=== PATIENT | female | born 1950 | race Caucasian/White ===

== ENCOUNTER 2018-01-05 04:07 | Emergency (ER) | payer OTHER, MEDICARE ==
[2018-01-05] MEDS ORDERED: methylPREDNISolone NA SUCC 125 MG/2 ML VIAL IVPB ONE (04:11)
[2018-01-05] MEDS ORDERED: FAMOTIDINE 20 MG/50 ML IVPB 20 MG/50 ML MG IVPB ONE (04:11)
--- NOTE | 2018-01-05 04:12 | PDOC ---
History of Present Illness - General Chief Complaint: Allergic Reaction Stated Complaint: ALLERGIC REACTION Time Seen by Provider: 01/05/18 04:10 - History of Present Illness Initial Comments: This 67-year-old woman with a history hyperlipidemia, depression/anxiety, chronic cough presents with apparent ALLERGIC reaction. Patient was awakened about an hour prior to presentation with generalized itching. At that time, she noted that her lips and tongue were swollen. Patient took an "old" Benadryl tablets that she had; she states she does not know the expiration date of the medication. She then drove herself to the hospital. Patient is mainly bothered by pruritus; she denies difficulty swallowing or breathing. She has not had any shortness of breath/wheezing/stridor. She denies any new food/ medication/supplements exposure. Although she had a glass wine prior to retiring at 11:30 PM, this was wine that she has had previously. She has not had any new soaps/detergent/creams applied to her body. Medications as noted below. ALLERGIES: Patient is unsure which antibiotic she is ALLERGIC to; she thinks it probably is amoxicillin PMH as above. 01/05/18 06:10 Past History - Past Medical History Allergies/Adverse Reactions: Allergies Allergy/AdvReac Type Severity Reaction Status Date / Time amoxicillin [Amoxicillin] Allergy Severe N&V Verified 01/05/18 04:08 Home Medications: Ambulatory Orders Bupropion HCl [Wellbutrin Sr] 150 mg PO DAILY 04/20/13 Citalopram Hydrobromide [Celexa -] 20 mg PO DAILY 04/20/13 Simvastatin [Zocor -] 5 mg PO ASDIR 04/20/13 predniSONE [Deltasone -] 5 mg PO DAILY 04/20/13 EPINEPHrine (EPI-PEN 0.3MG) [Epipen 0.3MG -] 0.3 mg IM ASDIR #2 pens 01/05/18 Anemia: No Asthma: Yes (HASN'T BEEN USING MEDS FOR 20 YEARS,TAKES PREDNISONE FOR COUGH) Cancer: No Cardiac Disorders: No CVA: No COPD: No CHF: No Dementia: No Diabetes: No GI Disorders: Yes (IBS 1975) Disorders: No HTN: No Hypercholesterolemia: Yes Liver Disease: No Psychiatric Problems: Yes (DEPRESSION) Seizures: No Thyroid Disease: No - Surgical History Abdominal Surgery: No Appendectomy: No Cardiac Surgery: No Cholecystectomy: No Lung Surgery: No Neurologic Surgery: No Orthopedic Surgery: Yes (RIGHT HAND SX 2007) - Immunization History Immunization Up to Date: No - Suicide/Smoking/Psychosocial Hx Smoking Status: No Smoking History: Never smoked Have you smoked in the past 12 months: No Number of Cigarettes Smoked Daily: 0 Hx Alcohol Use: Yes (SOCIALLY) Drug/Substance Use Hx: No Substance Use Type: Alcohol Hx Substance Use Treatment: No Review of Systems - Review of Systems Able to Perform ROS?: Yes Comments:: 12 point review of systems is negative except for what is noted in the history of present illness *Physical Exam - Physical Exam Comments: GENERAL: Adult female, alert and oriented 3, anxious but in no acute distress HEAD: Normal with no signs of trauma. EYES: PERRLA, EOMI, sclera anicteric, conjunctiva clear. ENT: Ears normal, nares patent, oropharynx clear without exudates. Moist mucous membranes. Mild upper and lower lip edema; moderate tongue edema; uvula and pharynx are nonedematous and otherwise normal NECK: Normal range of motion, supple without lymphadenopathy, JVD, or masses. No stridor LUNGS: Breath sounds equal, clear to auscultation bilaterally. No wheezes, and no crackles. HEART:Regular rate and rhythm, normal S1 and S2 without murmur, rub or gallop. ABDOMEN:.normal bowel sounds No guarding,tenderness or rebound.No masses No distention. EXTREMITIES: Normal range of motion, no edema. No clubbing or cyanosis. No erythema, or tenderness. NEUROLOGICAL: Cranial nerves II through XII grossly intact. Normal speech. No focal neurological deficits. MUSCULOSKELETAL: Back non-tender to palpation, no CVA tenderness SKIN: Generalized erythema with scattered maculo papular rash consistent with urticaria of head, neck, anterior and posterior chest and extremities Medical Decision Making - Medical Decision Making This 67-year-old woman with a history of hyperlipidemia/chronic cough/ depression presents with generalized ALLERGIC reaction, including lip and tongue edema. The allergen that triggered this reaction is unclear with patient denying any new food or medication exposure. The antidepressant medication and statin that the patient is taking have been taking chronically . Patient is complaining of generalized itching; she has no difficulty swallowing or breathing and airway is clear on auscultation. Exam as noted. Because of the lip and tongue edema, patient will have IV Solu-Medrol/Benadryl/ Pepcid and be observed 01/05/18 07:06 Patient has markedly decreased lip and tongue edema; no stridor or wheezing heard on auscultatory exam. Erythema and urticaria also are greatly improved. Patient states that she no longer has pruritus. Patient will be discharged with a ride home (likely taxi) with follow-up as already scheduled with her doctor tomorrow She will continue Benadryl as needed for itching; she has been instructed to take 10 mg of prednisone dinner tonight and with breakfast tomorrow morning prior to seeing her PMD; further dosing of prednisone as per her PMD. Prescription for EpiPen will be transmitted to her pharmacy. Case discussed with incoming physician at end of shift *DC/Admit/Observation/Transfer Diagnosis at time of Disposition: Allergic reaction Qualifiers: Encounter type: initial encounter Qualified Code(s): T78.40XA - Allergy, unspecified, initial encounter - Discharge Dispostion Condition at time of disposition: Stable - Prescriptions Prescriptions: EPINEPHrine (EPI-PEN 0.3MG) [Epipen 0.3MG -] 0.3 mg IM ASDIR #2 pens - Referrals - Patient Instructions Printed Discharge Instructions: DI for General Allergic Reactions Additional Instructions: Benadryl 25 mg, one tablet late this afternoon and then as needed for itching Prednisone 10 mg tonight with dinner and then with breakfast tomorrow morning Hold simvastatin today; continue anti-depressants as discussed Follow-up with your doctor as already scheduled tomorrow Return to ER if you have any difficulty swallowing/breathing or increase in lip/ tongue swelling - Post Discharge Activity
[2018-01-05 04:15] VITALS: BP 146/87; TEMP 98.6; BMI 21.5
[2018-01-05] MEDS ORDERED: methylPREDNISolone NA SUCC 125 MG/2 ML VIAL IVPUSH ONE (04:25)
[2018-01-05 05:25] VITALS: PULSE 73
[2018-01-05] MEDS ORDERED: diphenhydrAMINE HCL 25 MG CAPSULE (FP) PO ONE (06:40)
== END 2018-01-05 07:55 | disposition home or self-care (01) ==
LOC: FER 04:07
PROC: 3E033GC Introduction of Other Therapeutic Substance into Peripheral Vein, Percutaneous Approach (ICD-10-PCS; principal; 2018-01-05)
DX: T78.40XA Allergy, unspecified, initial encounter (principal); F32.9 Major depressive disorder, single episode, unspecified; E78.00 Pure hypercholesterolemia, unspecified; J45.909 Unspecified asthma, uncomplicated; K58.9 Irritable bowel syndrome, unspecified
CPT/HCPCS: 99282-25

== ENCOUNTER 2020-07-27 10:18 | Emergency (ER) | payer OTHER, MEDICARE | END 2020-07-27 12:02 | disposition home or self-care (01) | LOC: JVIRT 10:18 | DX: U07.1 COVID-19 (principal) | CPT/HCPCS: C9803; Q3014-GT; U0003 ==

== ENCOUNTER 2021-01-13 10:32 | Emergency (ER) | payer OTHER, MEDICARE ==
[2021-01-13 10:51] VITALS: BMI 21.0
[2021-01-13] MEDS ORDERED: ONDANSETRON 4 MG/2 ML VIAL IVPUSH ONE (11:17)
[2021-01-13] MEDS ORDERED: KETOROLAC TROMETHAMINE 15 MG/ML VIAL IVPUSH ONE (11:17)
[2021-01-13] MEDS ORDERED: KETOROLAC TROMETHAMINE 15 MG/ML VIAL ONE (11:24)
[2021-01-13] MEDS ORDERED: ONDANSETRON 4 MG/2 ML VIAL ONE (11:24)
[2021-01-13 11:28] LABS: MONO % 5.6 % (3.8-10.2); RBC 5.21 M/mm3 (3.60-5.2)
[2021-01-13 11:30] LABS: BASO % 1.1 % (0-2.0); EOS % 0.7 % (0-4.5); HEMATOCRIT 43.8 % (32.4-45.2); HEMOGLOBIN 15.1 GM/dl (10.7-15.3); LYMPH % 10.4 % (8-40); MCHC 34.4 g/dl (32.0-36.0); MEAN CELL VOLUME 84.1 fl (80-96); MEAN PLT VOLUME 8.1 fl (7.5-11.1); NEUT % 82.2 % (42.8-82.8); PLATELET COUNT 242 10^3/uL (134-434); WHITE BLOOD COUNT 10.2 K/mm3 (4.0-10.8)
[2021-01-13 11:51] LABS: ALBUMIN 4.6 g/dl (3.4-5.0); BILIRUBIN,TOTAL 0.8 mg/dl (0.2-1); CALCIUM 9.7 mg/dl (8.5-10); CREATININE 0.9 mg/dl (0.55-1.3); TOT PROT 8.4 g/dl (6.4-8.2)
[2021-01-13 12:04] VITALS: BP 187/91; PULSE 65; TEMP 97
[2021-01-13 12:34] LABS: EPITHELIAL CELLS FEW /hpf
== END 2021-01-13 13:29 | disposition home or self-care (01) ==
LOC: FER 10:32
PROC: 3E0333Z Introduction of Anti-inflammatory into Peripheral Vein, Percutaneous Approach (ICD-10-PCS; principal; 2021-01-13)
PROC: 3E033GC Introduction of Other Therapeutic Substance into Peripheral Vein, Percutaneous Approach (ICD-10-PCS; 2021-01-13)
DX: N20.0 Calculus of kidney (principal)
CPT/HCPCS: 36415; 74176-TC; 80053; 81003; 81015; 85025; 87086; 99284-25

== ENCOUNTER 2021-03-05 17:06 | Emergency (ER) | payer OTHER, MEDICARE ==
[2021-03-05 17:14] VITALS: BP 148/79; PULSE 95; TEMP 98.1; BMI 21.0
[2021-03-05 17:57] LABS: BASO % 0.6 % (0-2.0); EOS % 2.6 % (0-4.5); HEMATOCRIT 38.5 % (32.4-45.2); HEMOGLOBIN 12.8 GM/dl (10.7-15.3); LYMPH % 12.8 % (8-40); MCH 28.8 pg (25.7-33.7); MCHC 33.2 g/dl (32.0-36.0); MEAN CELL VOLUME 86.8 fl (80-96); MEAN PLT VOLUME 8.1 fl (7.5-11.1); MONO % 7.4 % (3.8-10.2); NEUT % 76.6 % (42.8-82.8); PLATELET COUNT 269 10^3/uL (134-434); RBC 4.43 M/mm3 (3.60-5.2); RDW 13.5 % (11.6-15.6); WHITE BLOOD COUNT 10.4 K/mm3 (4.0-10.8)
[2021-03-05 18:18] LABS: BILIRUBIN,TOTAL 0.8 mg/dl (0.2-1); CALCIUM 9.4 mg/dl (8.5-10); CREATININE 1.1 mg/dl (0.55-1.3); TOT PROT 6.9 g/dl (6.4-8.2)
[2021-03-05] MEDS ORDERED: ONDANSETRON 4 MG TABLET PO ONE (18:49)
[2021-03-05 19:18] LABS: EPITHELIAL CELLS FEW /hpf
== END 2021-03-05 20:38 | disposition home or self-care (01) ==
LOC: FER 17:06
DX: N23 Unspecified renal colic (principal)
CPT/HCPCS: 36415; 74177-TC; 80053; 81003; 81015; 83605; 85025; 87077; 87086; 93005; 99285-25; Q9967

== ENCOUNTER 2022-06-19 17:37 | Emergency (ER) | payer OTHER, MEDICARE ==
[2022-06-19 18:03] VITALS: BP 132/81; PULSE 89; RESP 16; TEMP 97; BMI 20.5
[2022-06-19] MEDS ORDERED: ACETAMINOPHEN 500 MG TABLET (FP) PO ONE (19:21)
[2022-06-19] MEDS ORDERED: ACETAMINOPHEN 500 MG TABLET (FP) ONE (19:23)
== END 2022-06-19 20:32 | disposition home or self-care (01) ==
LOC: FER 17:37
DX: S82.892A Other fracture of left lower leg, initial encounter for closed fracture (principal); X50.9XXA Other and unspecified overexertion or strenuous movements or postures, initial encounter
CPT/HCPCS: 73610-TC-LT-FY; 99283-25

== ENCOUNTER 2022-06-27 08:53 | Day surgery (SDC) | payer OTHER, MEDICARE ==
[2022-06-25 17:30] VITALS: BMI 20.1
[2022-06-27] MEDS ORDERED: MIDAZOLAM HCL 2 MG/2 ML SINGLE DOSE VIAL ONE ×4 (09:03→12:12)
[2022-06-27] MEDS ORDERED: BUPIVACAINE HCL/PF 0.5% (5 MG/ML) 30 ML VIAL IJ ONE (10:15)
[2022-06-27] MEDS ORDERED: DEXAMETHASONE SOD PHOSPHATE 10 MG/1 ML VIAL ONE (10:15)
[2022-06-27] MEDS ORDERED: ONDANSETRON 4 MG/2 ML VIAL ONE (12:11)
[2022-06-27] MEDS ORDERED: DEXAMETHASONE SOD PHOSPHATE 4 MG/1 ML VIAL ONE (12:11)
[2022-06-27] MEDS ORDERED: ceFAZolin SODIUM 1 GM VIAL ONE (12:11)
[2022-06-27] MEDS ORDERED: ONDANSETRON 4 MG/2 ML VIAL IVPUSH PRN (13:10)
[2022-06-27] MEDS ORDERED: oxyCODONE HCL 5 MG TABLET PO PRN (13:10)
[2022-06-27] MEDS ORDERED: LACTATED RINGERS SOLUTION 1,000 ML IV SCH (13:15)
[2022-06-27] MEDS ORDERED: ACETAMINOPHEN 1000 MG/100 ML BAG IVPB PRN (22:29)
[2022-06-27] MEDS ORDERED: oxyCODONE HCL 5 MG TABLET PO ONE (22:30)
[2022-06-27] MEDS ORDERED: diphenhydrAMINE HCL 12.5 MG/5 ML UNIT-DOSE CUPS PO ONE (22:32)
[2022-06-27 22:48] VITALS: RESP 17
[2022-06-28 06:42] VITALS: BP 122/69; PULSE 81; TEMP 97.6
[2022-06-28] MEDS ORDERED: CITALOPRAM HYDROBROMIDE 20 MG TABLET PO SCH (10:00)
[2022-06-28] MEDS ORDERED: CHOLECALCIFEROL (VIT D3) 1,000 UNIT (25 MCG) TABLET PO SCH (10:00)
== END 2022-06-28 09:00 | disposition home or self-care (01) ==
LOC: FASU 08:53 → FM/S 17:40 → FASU 06-28 09:00
PROVIDERS: ATTEND Orthopaedic Surgery Sports Medicine
PROC: 0QSH04Z Reposition Left Tibia with Internal Fixation Device, Open Approach (ICD-10-PCS; 2022-06-27)
PROC: 0QSK04Z Reposition Left Fibula with Internal Fixation Device, Open Approach (ICD-10-PCS; principal; 2022-06-27 11:28)
DX: S82.852A Displaced trimalleolar fracture of left lower leg, initial encounter for closed fracture (principal); X58.XXXA Exposure to other specified factors, initial encounter; Y93.9 Activity, unspecified; Y92.9 Unspecified place or not applicable
CPT/HCPCS: 73610-TC-LT-FY; 94760; C1713; J1100